=== PATIENT | male | born 1935 | race Caucasian/White ===

== ENCOUNTER → 2021-04-10 | Outpatient (CLI) | payer MEDICARE, OTHER ==
[~2021-04-10] MED LIST: CORDARONE 200M200 MG PO; ELIQUIS2.5 MG PO; GLUCOPHAGE XR500 MG PO; LIBRIUM 5 MG CAP5 MG PO; LYRICA50 MG PO; PROTONIX40 MG PO; RYTHMOL TAB 15150 MG PO; TOPROL XL100 MG PO; TOPROL XL50 MG PO
== END ==
LOC: KOH-I 13:25
DX: N18.30 Chronic kidney disease, stage 3 unspecified (principal); R31.9 Hematuria, unspecified; K76.89 Other specified diseases of liver
CPT/HCPCS: 74176

== ENCOUNTER → 2021-12-04 | Outpatient (CLI) | payer MEDICARE, OTHER | LOC: KOH-I 09:03 | DX: I10 Essential (primary) hypertension (principal); R05.9 Cough, unspecified; J98.6 Disorders of diaphragm; K21.9 Gastro-esophageal reflux disease without esophagitis; K44.9 Diaphragmatic hernia without obstruction or gangrene; Z79.899 Other long term (current) drug therapy | CPT/HCPCS: 71046 ==